=== PATIENT | female | born 1965 | race Caucasian/White ===

== ENCOUNTER 2016-03-29 12:43 | Outpatient (CLI) | payer OTHER | END 2016-03-29 12:44 | disposition home or self-care (01) | DX: N64.4 Mastodynia (principal) ==

== ENCOUNTER 2016-10-31 14:49 | Outpatient (CLI) | payer OTHER ==
[2016-10-31 19:17] LABS: BASOPHILS % (AUTO) 0.4 %; EOSINOPHILS # (AUTO) 0.1 10^3/uL (0.0-0.7); EOSINOPHILS % (AUTO) 0.9 %; HCT - HEMATOCRIT 42.8 % (37.0-47.0); HGB - HEMOGLOBIN 14.4 g/dL (12.0-16.0); LYMPHOCYTES # (AUTO) 1.1 10^3/uL (1.5-3.5); LYMPHOCYTES % (AUTO) 12.9 %; MEAN CORPUSCULAR HEMOGLOBIN 33.3 pg (27.0-31.0); MEAN CORPUSCULAR HGB CONC 33.6 g/dL (32.0-36.0); MEAN CORPUSCULAR VOLUME 99.1 fL (81.0-99.0); MEAN PLATELET VOLUME 8.9 fL (7.9-10.8); MONOCYTES # (AUTO) 0.7 10^3/uL (0.0-1.0); MONOCYTES % (AUTO) 7.5 %; NEUTROPHILS # (AUTO) 6.9 10^3/uL (1.5-6.6); NEUTROPHILS % (AUTO) 78.3 %; RED BLOOD COUNT 4.32 10^6/uL (4.20-5.40); RED CELL DISTRIBUTION WIDTH 12.2 % (12.0-15.0); UNCORRECTED WHITE BLOOD COUNT 8.8 x10^3/uL; WHITE BLOOD COUNT 8.8 x10^3/uL (4.8-10.8)
[2016-10-31 19:32] LABS: ALBUMIN/GLOBULIN RATIO 1.5 (1.0-2.2); BILIRUBIN,TOTAL 1.2 mg/dL (0.2-1.0); BUN - BLOOD UREA NITROGEN 20 mg/dL (6-20); CALCIUM 9.8 mg/dL (8.5-10.3); CARBON DIOXIDE - CO2 29 mmol/L (21-32); CHLORIDE 99 mmol/L (101-111); CHOL/HDL RATIO 4.2 (<4.4); CHOLESTEROL 299 mg/dL; CREATININE 0.7 mg/dL (0.4-1.0); GFR - MDRD 89 (>89); GLUCOSE 101 mg/dL (70-100); HDL CHOLESTEROL 71 mg/dL; POTASSIUM 4.8 mmol/L (3.5-5.0); SODIUM 136 mmol/L (135-145); TOTAL PROTEIN 7.8 g/dL (6.7-8.2); TRIGLYCERIDES 92 mg/dL; VLDL CHOLESTEROL 18 mg/dL
== END 2016-10-31 14:50 | disposition home or self-care (01) ==
LOC: LAB.WCP 14:49
PROVIDERS: ATTEND Family Medicine
DX: Z00.00 Encounter for general adult medical examination without abnormal findings (principal); E78.5 Hyperlipidemia, unspecified; L57.0 Actinic keratosis; T78.40XA Allergy, unspecified, initial encounter; F41.8 Other specified anxiety disorders
CPT/HCPCS: 36415; 80053; 80061; 84443; 85025

== ENCOUNTER 2018-10-01 07:00 | Outpatient (CLI) | payer OTHER ==
--- NOTE | 2018-10-01 15:11 | XRAY Report ---
Reason: LEFT FOOT PAIN Procedure Date: 10/01/2018 Accession Number: [id number] / [id number] Procedure: WCP - Foot 3 View LT CPT Code: FULL RESULT: EXAM: LEFT FOOT RADIOGRAPHY EXAM DATE: 10/01/2018 08:24 AM. CLINICAL HISTORY: Left foot pain. COMPARISON: None. TECHNIQUE: 3 views. FINDINGS: Bones: Mild posterior calcaneal spurring. No fractures or bone lesions. Joints: Normal. No subluxations. Soft Tissues: Normal. No soft tissue swelling. IMPRESSION: No fracture or dislocation is identified. Mild posterior calcaneal spurring at the Achilles insertion. RADIA
== END 2018-10-01 23:59 | disposition home or self-care (01) ==
LOC: DI.WCP 07:00 → EDSTATUS 13:18 → DI.WCP 23:59
PROVIDERS: ATTEND Family Medicine
DX: M77.32 Calcaneal spur, left foot (principal)

== ENCOUNTER 2018-10-01 08:00 | Outpatient (CLI) | payer OTHER | END 2018-10-01 23:59 | disposition home or self-care (01) | LOC: LAB.WCP 08:00 | PROVIDERS: ATTEND Family Medicine | DX: M79.672 Pain in left foot (principal) | CPT/HCPCS: 36415; 84550 ==

== ENCOUNTER 2019-03-29 08:43 | Outpatient (CLI) | payer BC | END 2019-03-29 08:44 | disposition home or self-care (01) | LOC: DI.N 08:43 | DX: Z53.9 Procedure and treatment not carried out, unspecified reason (principal) ==

== ENCOUNTER 2020-01-29 08:10 | Outpatient (CLI) | payer BC ==
--- NOTE | 2020-01-30 11:46 | Ultrasound Report ---
LIMITED ULTRASOUND OF RIGHT BREAST AND AXILLA: 01/29/2020 CLINICAL: Patient returns for additional imaging over a suspected mass in the right breast. Comparison is made to exams dated: 01/29/2020 mammogram, 03/29/2016 mammogram, 12/02/2013 mammogram, and 11/22/2013 mammogram - [facility]. Ultrasound of the right breast 4 o'clock, 8 o'clock, and axilla regions was performed on the areas of interest. There is a 0.6 cm x 0.3 cm x 0.6 cm cluster of microcysts in the right breast at 8 o'clock middle dep th. This likely correlates with mammography findings. There also is a 0.8 cm mass in the right breast at 3 o'clock posterior depth. This mass is hypoechoi c with a fatty hilum. This likely correlates with mammography findings. Additionally, there is a 0.6 cm mass in the right breast at 4 o'clock posterior depth. This mass dis plays a fatty hilum. This likelu correlates with mammography findings. The right axilla was interogated and normal appearing lymph nodes are visualized. IMPRESSION: PROBABLY BENIGN No right axillary adenopathy. The 0.6 cm x 0.3 cm x 0.6 cm cluster of microcysts in the right breast at 8 o'clock middle depth is p robably benign. The 0.8 cm mass in the right breast at 3 o'clock posterior depth likely represents a lymph node and i s probably benign. The 0.6 cm mass in the right breast at 4 o'clock posterior depth likely represents a lymph node and i s probably benign. A follow-up right mammogram and an ultrasound in 6 months is recommended to demonstrate stability. This exam was interpreted at Station ID: [id number]. SUMMARY: This was discussed with the patient by the radiologist at the time of the exam. Electronically Signed By: Jackie viveros/:01/29/2020 10:19:15 Ultrasound BI-RADS: 3 Probably benign BI-RADS CATEGORY: (3) - 3 Mammo and [place] [id number] 6 month follow-up LATERALITY: (R)
--- NOTE | 2020-01-30 11:46 | Mammography Report ---
BILATERAL DIGITAL DIAGNOSTIC MAMMOGRAM 3D/2D: 01/29/2020 CLINICAL: Intermitten diffuse left breast pain. Patient does not have pain today. Comparison is made to exams dated: 03/29/2016 mammogram, 12/02/2013 mammogram, and 11/22/2013 mammogr - [facility]. The tissue of both breasts is heterogeneously dense. This may low er the sensitivity of mammography. There is a focal asymmetry in the right breast at 8 o'clock anterior depth. There also is a focal asymmetry in the right breast at 4 o'clock posterior depth. Additionally, there is a focal asymmetry in the right breast at 2 o'clock posterior depth. No other significant masses, calcifications, or other findings are seen in either breast. IMPRESSION: INCOMPLETE: NEEDS ADDITIONAL IMAGING EVALUATION The focal asymmetry in the right breast at 8 o'clock anterior depth is indeterminate. An ultrasound is recommended. The focal asymmetry in the right breast at 4 o'clock posterior depth is indeterminate. An ultrasound is recommended. The focal asymmetry in the right breast at 2 o'clock posterior depth is indeterminate. An ultrasound is recommended. A targeted ultrasound of the right breast is recommended and will be performed immediately following this exam. This exam was interpreted at Station ID: [id number]. NOTE: For mammograms, a report in lay terms will be sent to the patient. Approximately 15% of breast malignancies will not be visualized mammographically. In the management of a palpable breast mass, a negative mammogram must not discourage biopsy of a clinically suspicious lesion. Electronically Signed By: Jackie Mcmahon M.D. lk/:01/29/2020 10:14:11 ACR BI-RADS Category 0: Incomplete 3340F PARENCHYMAL PATTERN: (D) - The breast(s) demonstrate(s) heterogeneously dense fibroglandular diomedes rees. BI-RADS CATEGORY: (0) - 0 Ultrasound [id number] Immediate follow-up LATERALITY: (B)
== END 2020-01-29 08:11 | disposition home or self-care (01) ==
LOC: DI 08:10
DX: N64.4 Mastodynia (principal); N60.11 Diffuse cystic mastopathy of right breast; N63.14 Unspecified lump in the right breast, lower inner quadrant

== ENCOUNTER 2021-09-03 10:14 | Outpatient (CLI) | payer OTHER ==
--- NOTE | 2021-09-06 10:22 | Ultrasound Report ---
LIMITED ULTRASOUND OF RIGHT BREAST: 09/03/2021 CLINICAL: Patient returns today to evaluate a focal asymmetry in the right breast. Comparison is made to exams dated: 09/03/2021 mammogram, 01/29/2020 ultrasound, 01/29/2020 mammogram, 03/29/2016 mammogram, 12/02/2013 mammogram, and 11/22/2013 mammogram - [facility]. Color flow ultrasound of the right breast 2-4 o'clock and 8 o'clock regions was performed. [place] scal e images of the real-time examination were reviewed. There is a 0.4 cm x 0.4 cm x 0.3 cm oval cyst in the right breast at 8 o'clock anterior depth 3 cm fr om the nipple. This abnormality is decreased in size and correlates with mammography findings. [place] r flow imaging demonstrates that there is no vascularity present. There also is a stable benign normal lymph node in the right breast at 3 o'clock posterior depth. Th is normal lymph node displays fatty hilum. This correlates as an incidental finding. Color flow sohail ging demonstrates that there is no vascularity present. No other suspicious sonographic findings in the medial right breast (2:002-4:00). Specifically, no fi nding to correspond to the patient's resolved screening mammographic abnormalities. IMPRESSION: BENIGN There is no sonographic evidence of malignancy. The 0.4 cm cyst in the right breast at 8 o'clock anterior depth has decreased in size and complexity and is consistent with a simple cyst and is benign. The normal lymph node in the right breast at 3 o'clock posterior depth is stable and benign. A 1 year screening mammogram is recommended. Findings and recommendations were conveyed to the patient at time of exam. This exam was interpreted at Station ID: [id number]. Electronically Signed By: Tennille sapp/:09/03/2021 14:21:32 Ultrasound BI-RADS: 2 Benign BI-RADS CATEGORY: (2) - 2 RECOMMENDATION: (ANNUAL) - Recommend routine annual screening mammography. [id number] 1 year screening LATERALITY: (B)
--- NOTE | 2021-09-06 10:22 | Mammography Report ---
BILATERAL DIGITAL DIAGNOSTIC MAMMOGRAM 3D/2D: 09/03/2021 CLINICAL: Patient returns for a 6 month follow up of the right breast, due for bilateral exam. Comparison is made to exams dated: 01/29/2020 mammogram, 03/29/2016 mammogram, 12/02/2013 mammogram, and 11/22/2013 mammogram - [facility]. The tissue of both breasts is heterogeneous ly dense. This may lower the sensitivity of mammography. There is a stable focal asymmetry in the right breast at 8 o'clock anterior depth. The focal asymmetry in the right breast at 4 o'clock posterior depth is no longer seen. The focal asymmetry in the right breast at 2 o'clock posterior depth is no longer seen. No other significant masses, calcifications, or other findings are seen in either breast. IMPRESSION: INCOMPLETE: NEEDS ADDITIONAL IMAGING EVALUATION The focal asymmetry in the right breast at 8 o'clock anterior depth is stable but remains indetermina te. An ultrasound is recommended. An ultrasound is recommended to confirm resolution of the focal asymmetries in the right breast at 2 o'clock 4 o'clock posterior depth. Previously, there was an incidental 3:00 lymph node in the area a nd no other correlate. Ultrasound is recommended for full evaluation of these areas. This was performed immediately followin g this exam. Based on Tyrer-Cuzick model (a risk assessment model), the patient's lifetime risk is 30.9% and her 1 0 year risk is 9.6%. If a patient has an elevated risk, a more comprehensive evaluation should be con sidered and/or a referral to a genetic counselor. The [employer], [employer], and NCCN Guidelines advise the consideration of Breast MRI as an adjunct to screening mammog rosina in patients whose "Lifetime risk to develop breast cancer" is 20% or higher. This exam was interpreted at Station ID: [id number]. NOTE: For mammograms, a report in lay terms will be sent to the patient. Approximately 15% of breast malignancies will not be visualized mammographically. In the management of a palpable breast mass, a negative mammogram must not discourage biopsy of a clinically suspicious lesion. Electronically Signed By: Tennille sapp/:09/03/2021 12:03:04 ACR BI-RADS Category 0: Incomplete 3340F PARENCHYMAL PATTERN: (D) - The breast(s) demonstrate(s) heterogeneously dense fibroglandular parenchy ma. BI-RADS CATEGORY: (0) - 0 Ultrasound [id number] Immediate follow-up LATERALITY: (B)
== END 2021-09-03 10:15 | disposition home or self-care (01) ==
LOC: DI 10:14
PROVIDERS: ATTEND Family Medicine
DX: N64.4 Mastodynia (principal); N60.01 Solitary cyst of right breast

== ENCOUNTER 2023-10-30 15:25 | Outpatient (CLI) | payer OTHER ==
--- NOTE | 2023-11-01 11:00 | Mammography Report ---
BILATERAL DIGITAL SCREENING MAMMOGRAM 3D/2D: 10/30/2023 CLINICAL: Routine screening. Comparison is made to exams dated: 09/03/2021 mammogram, 01/29/2020 mammogram, and 03/29/2016 mammogra m - [facility]. The breasts are heterogeneously dense, which may obscure small masses (category c / 51-75% glandular tissue). No significant masses, calcifications, or other findings are seen in either breast. There has been no significant interval change. IMPRESSION: NEGATIVE There is no mammographic evidence of malignancy. A 1 year screening mammogram is recommended. Based on Tyrer-Cuzick model (a risk assessment model), the patient's lifetime risk is 30.3% and her 1 0 year risk is 10.6%. If a patient has an elevated risk, a more comprehensive evaluation should be co nsidered and/or a referral to a genetic counselor. The [employer], [employer], and NCCN Guidelines advise the consideration of Breast MRI as an adjunct to screening mammo graphy in patients whose "Lifetime risk to develop breast cancer" is 20% or higher. This exam was interpreted at Station ID: [id number]. NOTE: For mammograms, a report in lay terms will be sent to the patient. Approximately 15% of breast malignancies will not be visualized mammographically. In the management of a palpable breast mass, a negative mammogram must not discourage biopsy of a clinically suspicious lesion. Electronically Signed By: Steve prakash/ángel:10/31/2023 12:23:39 letter sent: No_Letter ACR BI-RADS Category 1: Negative PARENCHYMAL PATTERN: (D) - The breast(s) demonstrate(s) heterogeneously dense fibroglandular parenchy ma. BI-RADS CATEGORY: (1) - 1 RECOMMENDATION: (ANNUAL) - Recommend routine annual screening mammography. [id number] 1 year screening LATERALITY: (B)
== END 2023-10-30 15:26 | disposition home or self-care (01) ==
LOC: DI.N 15:25
PROVIDERS: ATTEND Nurse Practitioner
DX: Z12.31 Encounter for screening mammogram for malignant neoplasm of breast (principal); R92.333 Mammographic heterogeneous density, bilateral breasts